=== PATIENT | female | born 1980 | race American Indian/Alaskan Native ===

== ENCOUNTER 2020-01-02 06:10 | Emergency (ER) | payer OTHER ==
[~2020-01-02] VITALS: Ht 134.6 cm; Wt 68.0 kg
[2020-01-02 06:36] LABS: URINE BILIRUBIN NEGATIVE (Negative); URINE BLOOD NEGATIVE (Negative); URINE CLARITY CLEAR; URINE COLOR YELLOW; URINE GLUCOSE-RANDOM* NEGATIVE (Negative); URINE KETONES NEGATIVE (Negative); URINE LEUKOCYTES-REFLEX NEGATIVE (Negative); URINE NITRITE-REFLEX NEGATIVE (Negative); URINE PROTEIN (DIPSTICK) NEGATIVE (Negative); URINE UROBILINOGEN 0.2 E.U./dl (0.2-1.0)
[2020-01-02 06:46] LABS: ABSOLUTE NEUTROPHILS 7.9 thou/uL (1.4-8.2); BASOPHILS 0.7 % (0.0-2.0); EOSINOPHILS 0.8 % (0.0-3.0); HEMATOCRIT 39.2 % (37.0-47.0); HEMOGLOBIN 13.2 gm/dL (12.0-15.0); LYMPHOCYTES 23.8 % (24.0-44.0); MCH 28.2 pg (26.0-34.0); MCHC 33.7 g/dL (28.0-37.0); MCV 83.8 fL (80.0-100.0); MONOCYTES 4.5 % (1.0-8.0); PLATELET COUNT 279 thou/uL (150-400); POLYS 70.2 % (36.0-66.0); RBC 4.67 mil/uL (4.20-5.00); RDW 13.6 % (10.5-14.5); WBC 11.3 thou/uL (4.0-11.0)
[2020-01-02 06:50] LABS: CREATININE 0.6 mg/dL (0.6-1.0); POTASSIUM 4.1 mmol/L (3.5-5.1)
[2020-01-02 06:58] LABS: ALBUMIN 3.9 g/dL (3.4-5.0); TOTAL BILIRUBIN 0.3 mg/dL (0.2-1.0); TOTAL PROTEIN 7.8 g/dL (6.4-8.2)
[2020-01-02 08:50] VITALS: BP 127/72
[2020-01-02] MEDS ORDERED: NAPROSYN500 MG PO (08:53)
[2020-01-02] MEDS ORDERED: ZOFRAN4 MG PO (08:53)
== END 2020-01-02 08:50 | disposition home or self-care (01) ==
LOC: ER 06:10
PROVIDERS: Emergency Medicine
DX: K80.50 Calculus of bile duct without cholangitis or cholecystitis without obstruction (principal); R74.0 Nonspecific elevation of levels of transaminase and lactic acid dehydrogenase [LDH]; R10.13 Epigastric pain; R10.11 Right upper quadrant pain